=== PATIENT | female | born 1970 | race Asian ===

== ENCOUNTER 2020-12-28 06:26 | Day surgery (SDC) | payer BC ==
[2020-12-28] MEDS ORDERED: Sodium Chloride 0.9% 1,000 ML IV SCH (07:00)
--- NOTE | 2020-12-28 10:55 | OR ---
DATE OF PROCEDURE: 12/28/2020 SURGEON: Willy Fisher MD PROCEDURE: Colonoscopy. FINDINGS: Normal colonoscopy. PREOPERATIVE DIAGNOSIS: Screening colonoscopy. POSTOPERATIVE DIAGNOSIS: Screening colonoscopy. RISKS: Risks, benefits, alternatives, and limitations including, but not limited to infection, bleeding, perforation, false positives, false negatives were explained to the patient and she wished to proceed. PROCEDURE IN DETAIL: The patient was placed in left lateral decubitus position. Digital rectal exam was performed without abnormality except for small external hemorrhoids. Scope was introduced and advanced atraumatically to the ileocecal valve. A photo was taken of the appendiceal orifice. Scope was brought back to the ascending, transverse, descending colon, and retroflexed. No evidence of old or new blood. No masses. No colitis. No diverticulosis. No polyps. No abnormalities on retroflexion. Greater than 8 minutes was spent removing the scope. The prep was acceptable with approximately 90% of the luminal surface could be seen. The patient tolerated the procedure well. Willy Fisher MD /[id number]
== END 2020-12-28 09:15 | disposition home or self-care (01) ==
LOC: JP.SDS 06:26
PROVIDERS: ATTEND Surgery
DX: Z12.11 Encounter for screening for malignant neoplasm of colon (principal); K64.4 Residual hemorrhoidal skin tags
CPT/HCPCS: 45378; J7030